=== PATIENT | female | born 1975 | race Caucasian/White ===

== ENCOUNTER 2016-04-26 12:48 | Emergency (ER) ==
--- NOTE | 2016-04-26 14:25 | PROVIDER DOCUMENTATION ---
HPI-General Adult - General Chief Complaint: Edema Stated Complaint: EDEMA Time Seen by Provider: 04/26/16 13:53 Source: patient Allergies/Adverse Reactions: Patient Allergies Allergy/AdvReac Type Severity Reaction Status Date / Time No Known Allergies Allergy Verified 04/26/16 15:07 Home Medications: No Home Medications 07/08/13 - History of Present Illness -Gen Adult Nature of Presenting Problems: 41 y/o WF c/o bilat LE swelling x 3 days. Pt states more swelling on Friday , but laid in bed yesterday and the swelling went down, but states that she wants to know what is wrong. States mild SOB. Denies any other sxs. Review of Systems - Adult - REVIEW OF SYSTEMS - ADULT Constitutional: reports: no symptoms reported. denies: chills, fever Eyes: reports: no symptoms reported. denies: blurred vision, double vision Ears, Nose, Mouth & Throat: reports: no symptoms reported. denies: ear pain, nose pain Cardiovascular: reports: see HPI, edema. denies: chest pain, palpitations Respiratory: reports: see HPI, shortness of breath. denies: dyspnea on exertion Gastrointestinal: reports: no symptoms reported. denies: nausea, vomiting Genitourinary: reports: no symptoms reported. denies: dysuria, frequency Musculoskeletal: reports: no symptoms reported. denies: joint pain Integumentary: reports: no symptoms reported. denies: nail changes, rash Neurological: reports: no symptoms reported. denies: numbness, paresthesia Psychiatric: reports: no symptoms reported Endocrine: reports: no symptoms reported. denies: cold intolerance, heat intolerance Hematologic/Lymphatic: reports: no symptoms reported. denies: easy bruising, prolonged bleeding Allergic/Immunologic: reports: no symptoms reported All Other Systems: Reviewed and Negative Past History - Adult - PAST MEDICAL HISTORY-ADULT Review of Records: reports: Nursing Assessment Review, Medications Reviewed - SOCIAL HISTORY Smoking: cigarettes, greater than 1 pack/day Provider spent 3-5 mins advising pt. on dangers of tobacco.: Discussed manners to quit use, and f/u contacts for add'l counseling. Physical Exam-General - PHYSICAL EXAM-ADULT Initial Vital Signs Reviewed: Yes - CONSTITUTIONAL General Appearance: alert, mild distress - EYES Eyes: pink conjunctivae - HEAD, EARS, NOSE, MOUTH & THROAT HENMT: normocephalic/atraumatic, moist mucous membranes - NECK Neck: supple, normal inspection - RESPIRATORY Respiratory: no respiratory distress, crackles. negative: rales, rhonchi, stridor, wheezing - CARDIOVASCULAR Cardiovascular: regular rate, rhythm. negative: bradycardia, tachycardia - GASTROINTESTINAL (ABDOMEN) Abdominal Exam: normal bowel sounds, non tender, soft - MUSCULOSKELETAL Extremity: normal range of motion, no calf tenderness, pedal edema (bilat LE, pitting edema on L>R, +1) Peripheral Pulses: dorsalis-pedis (R): 1+, dorsalis-pedis (L): 1+ - SKIN Integumentary: normal color, normal turgor, warm/dry. negative: erythema - NEUROLOGIC Neurologic: negative: aphasia - PSYCHIATRIC Psych/Mental Status: normal mood/affect, normal thought content, normal thought process, oriented x 3 Progress - PLAN OF CARE/RESULTS Progress/Plan/Lab Results: Laboratory Tests 04/26/16 04/26/16 04/26/16 14:46 14:46 14:46 WBC 9.88 RBC 3.82 L Hgb 11.5 L Hct 35.1 L MCV 91.9 MCH 30.1 MCHC 32.8 L RDW Std Deviation 17.4 H Plt Count 362 MPV 10.1 Immature Gran % (Auto) 0.0 Neut % (Auto) 53.8 Lymph % (Auto) 34.1 Hood % (Auto) 9.3 Eos % (Auto) 2.5 Baso % (Auto) 0.3 Immature Gran # (Auto) 0.00 Neut # (Auto) 5.31 Lymph # (Auto) 3.37 Hood # (Auto) 0.92 H Eos # (Auto) 0.25 Baso # (Auto) 0.03 Sodium 133 L Potassium 3.3 L Chloride 97 L Carbon Dioxide 28 Anion Gap 8 BUN 6 L Creatinine 0.6 Estimated GFR/1.73 m2 > 60 BUN/Creatinine Ratio 10 Glucose 71 Calculated Osmolality 262 Calcium 8.5 L Magnesium 1.9 Total Bilirubin 0.17 L AST 19 ALT 15 Alkaline Phosphatase 149 H Zts-B-Xxayqnrngra Pept 120 Total Protein 6.0 L Albumin 3.2 L Globulin 2.8 Albumin/Globulin Ratio 1.1 Vitamin B12 Urine Source Urine Color Urine Turbidity Urine pH Ur Specific Lin[place] Urine Protein Ur Glucose (Stick) Ur Ketones (Stick) Urine Blood Urine Nitrite Urine Bilirubin Urobilinogen Dipstick Urine Leukocytes Urine WBC (Auto) Urine RBC (Auto) U Epithel Cells (Auto) Urine Bacteria (Auto) 04/26/16 04/26/16 14:46 14:46 WBC RBC Hgb Hct MCV MCH MCHC RDW Std Deviation Plt Count MPV Immature Gran % (Auto) Neut % (Auto) Lymph % (Auto) Hood % (Auto) Eos % (Auto) Baso % (Auto) Immature Gran # (Auto) Neut # (Auto) Lymph # (Auto) Hood # (Auto) Eos # (Auto) Baso # (Auto) Sodium Potassium Chloride Carbon Dioxide Anion Gap BUN Creatinine Estimated GFR/1.73 m2 BUN/Creatinine Ratio Glucose Calculated Osmolality Calcium Magnesium Total Bilirubin AST ALT Alkaline Phosphatase Trd-L-Erbnoekorha Pept Total Protein Albumin Globulin Albumin/Globulin Ratio Vitamin B12 507 Urine Source CLEAN CATCH Urine Color STRAW Urine Turbidity CLEAR Urine pH 5.5 Ur Specific [place] 1.002 Urine Protein NEGATIVE Ur Glucose (Stick) NEGATIVE Ur Ketones (Stick) NEGATIVE Urine Blood NEGATIVE Urine Nitrite NEGATIVE Urine Bilirubin NEGATIVE Urobilinogen Dipstick NORMAL Urine Leukocytes NEGATIVE Urine WBC (Auto) <10 Urine RBC (Auto) <10 U Epithel Cells (Auto) <10 Urine Bacteria (Auto) NEGATIVE Orders Category Date Time Status Cardiac Monitoring DIRECTED Care 04/26/16 14:18 Active CHEST-2 VIEWS [RAD] Stat Exams 04/26/16 14:18 Draft CBC WITH ELECTRONIC DIFF [HEME] Stat Lab 04/26/16 14:46 Completed COMPREHENSIVE METABOLIC PANEL [CHEM] Stat Lab 04/26/16 14:46 Completed MAGNESIUM [CHEM] Stat Lab 04/26/16 14:46 Completed PRO B-NATRIURETIC PEPTIDE Stat Lab 04/26/16 14:46 Completed URINALYSIS W/POSS RFLX CULT [URINALYSIS] Stat Lab 04/26/16 14:46 Completed VITAMIN B12 Stat Lab 04/26/16 14:46 Completed Vital Signs Temp Pulse Resp BP Pulse Ox 04/26/16 15:08 98 F 64 18 117/74 04/26/16 13:22 98.1 F 69 18 124/61 100 No Known Allergies Allergy (Verified 04/26/16 15:07) No Home Medications 07/08/13 I&O 04/25/16 04/26/16 04/27/16 06:59 06:59 06:59 Output Total 100 Balance -100 Laboratory 04/26/16 04/26/16 04/26/16 14:46 14:46 14:46 WBC RBC Hgb Hct MCV MCH MCHC RDW Std Deviation Plt Count MPV Immature Gran % (Auto) Neut % (Auto) Lymph % (Auto) Hood % (Auto) Eos % (Auto) Baso % (Auto) Immature Gran # (Auto) Neut # (Auto) Lymph # (Auto) Hood # (Auto) Eos # (Auto) Baso # (Auto) Sodium Potassium Chloride Carbon Dioxide Anion Gap BUN Creatinine Estimated GFR/1.73 m2 BUN/Creatinine Ratio Glucose Calculated Osmolality Calcium Magnesium Total Bilirubin AST ALT Alkaline Phosphatase Gga-T-Ebqbtktdklg Pept 120 Total Protein Albumin Globulin Albumin/Globulin Ratio Vitamin B12 507 Urine Source CLEAN CATCH Urine Color STRAW Urine Turbidity CLEAR Urine pH 5.5 Ur Specific [place] 1.002 Urine Protein NEGATIVE Ur Glucose (Stick) NEGATIVE Ur Ketones (Stick) NEGATIVE Urine Blood NEGATIVE Urine Nitrite NEGATIVE Urine Bilirubin NEGATIVE Urobilinogen Dipstick NORMAL Urine Leukocytes NEGATIVE Urine WBC (Auto) <10 Urine RBC (Auto) <10 U Epithel Cells (Auto) <10 Urine Bacteria (Auto) NEGATIVE 04/26/16 04/26/16 14:46 14:46 WBC 9.88 RBC 3.82 L Hgb 11.5 L Hct 35.1 L MCV 91.9 MCH 30.1 MCHC 32.8 L RDW Std Deviation 17.4 H Plt Count 362 MPV 10.1 Immature Gran % (Auto) 0.0 Neut % (Auto) 53.8 Lymph % (Auto) 34.1 Hood % (Auto) 9.3 Eos % (Auto) 2.5 Baso % (Auto) 0.3 Immature Gran # (Auto) 0.00 Neut # (Auto) 5.31 Lymph # (Auto) 3.37 Hood # (Auto) 0.92 H Eos # (Auto) 0.25 Baso # (Auto) 0.03 Sodium 133 L Potassium 3.3 L Chloride 97 L Carbon Dioxide 28 Anion Gap 8 BUN 6 L Creatinine 0.6 Estimated GFR/1.73 m2 > 60 BUN/Creatinine Ratio 10 Glucose 71 Calculated Osmolality 262 Calcium 8.5 L Magnesium 1.9 Total Bilirubin 0.17 L AST 19 ALT 15 Alkaline Phosphatase 149 H Ebk-W-Cfurlvbqrjk Pept Total Protein 6.0 L Albumin 3.2 L Globulin 2.8 Albumin/Globulin Ratio 1.1 Vitamin B12 Urine Source Urine Color Urine Turbidity Urine pH Ur Specific [place] Urine Protein Ur Glucose (Stick) Ur Ketones (Stick) Urine Blood Urine Nitrite Urine Bilirubin Urobilinogen Dipstick Urine Leukocytes Urine WBC (Auto) Urine RBC (Auto) U Epithel Cells (Auto) Urine Bacteria (Auto) Discussed results and f/u with PCP for further evaluation of elevated alkaline phosphatase; discussed conservative management for edema with pt. - XRAY 1 XRAY Study: Chest Impression: See EMR Report (No acute disease, per Dr. Mcgregor) Departure - Departure Time of Disposition Order: 15:56 DIAGNOSIS: Elevated alkaline phosphatase level Edema Qualifiers: Edema type: unspecified Qualified Code(s): R60.9 - Edema, unspecified Disposition: HOME 01 Certified Medical Emergency: Emergent Condition: Stable Additional Instructions: Take tylenol for pain. Elevate legs daily for relief of edema. Follow up with PCP for further management. ED Follow Up Instructions: You have been treated by a care provider in the Emergency Department. These instructions are being provided to you so you can have an understanding of how to care for yourself upon discharge. Upon discharge from the Emergency Department, you are responsible for making arrangements for follow-up care by a physician of your choice. Take all prescribed medications as directed. Return to the Emergency Department immediately for any new or worsening symptoms. You may call the Physician Referral phone number at [phone] to obtain a list of Physicians who are taking new patients. Referrals: Jose Luis Yang MD [Primary Care Provider] - Forms: Return to School/Parent Work Instructions: Edema, [id number] Attestation - Physician/ Mid-level Attestation Patient care was provided by Mid-level provider (TUBE HANDLER/PA):: Yes Mid-level provider:: Adele Santos Mid-level documentation review:: The Mid-level provider documentation, treatment plan and medical decision making was reviewed by the physician who agrees with all treatment and medical decision making by the MLP.
--- NOTE | 2016-04-26 14:57 | Diag Imaging Result Document ---
PROCEDURE NAME: CHEST-2 VIEWS - 04/26/2016 CHEST, TWO VIEWS: INDICATION: Chest pain. COMPARISON: 07/09/2013. FINDINGS: The cardiomediastinal silhouette is within normal limits. The pulmonary vasculature is not congested. No infiltrates or effusions are identified. There are surgical clips at the gastroesophageal junction. IMPRESSION: No acute cardiopulmonary abnormality.
[2016-04-26 14:59] LABS: MANUAL DIFF NEEDED? NO; URINE CULTURE NEEDED? NO; URINE MICRO REVIEW NEEDED? NO; URINE SOURCE CLEAN CATCH
[2016-04-26 15:05] LABS: BASO% 0.3 % (0.0-0.8); EOS# 0.25 X1000 (0.0-0.7); EOS% 2.5 % (0.0-10.0); HEMATOCRIT 35.1 % (37.0-47.0); HEMOGLOBIN 11.5 g/dL (12.0-16.0); LYMPH# 3.37 X1000 (1.2-3.4); LYMPH% 34.1 % (20.5-51.1); MCH 30.1 PG (27-31); MCHC 32.8 g/dL (33-37); MCV 91.9 FL (81-99); MONO# 0.92 X1000 (0.11-0.59); MONO% 9.3 % (1.7-9.3); MPV 10.1 FL (7.4-10.4); NEUT% 53.8 % (42.2-75.2); PLT 362 X1000 (130-400); RBC 3.82 XMIL (4.2-5.4)
[2016-04-26 15:07] LABS: BILIRUBIN URINE NEGATIVE (NEGATIVE); BLOOD URINE NEGATIVE (NEGATIVE); COLOR STRAW; GLUCOSE URINE NEGATIVE (NEGATIVE); LEUKOCYTES URINE NEGATIVE (NEGATIVE); NITRITE URINE NEGATIVE (NEGATIVE); PH URINE 5.5; PROTEIN URINE NEGATIVE (NEGATIVE); SP GRAVITY URINE 1.002; TURBIDITY URINE CLEAR (CLEAR); UROBILINOGEN URINE NORMAL (NORMAL)
[2016-04-26 15:08] LABS: UR EPITHELIAL CELLS <10 /HPF (<10); URINE BACTERIA NEGATIVE /HPF; URINE RBC <10 /HPF (<10); URINE WBC <10 /HPF (<10)
[2016-04-26 15:34] LABS: AGAP 8; ALBUMIN 3.2 g/dL (3.5-5.0); ALKALINE PHOSPHATASE 149 U/L (32-104); BUN 6 mg/dL (8-22); CALCIUM 8.5 mg/dL (8.8-10.2); CHLORIDE 97 mmol/L (98-107); COSMO 262; GOT 19 U/L (10-30); GPT 15 U/L (10-36); MAGNESIUM 1.9 mg/dL (1.5-2.7); POTASSIUM 3.3 mmol/L (3.5-5.1); SODIUM 133 mmol/L (136-145); TCO2 28 mmol/L (25-35); TOTAL BILIRUBIN 0.17 mg/dL (0.20-1.00)
[2016-04-26 16:24] VITALS: BP 124/66
== END 2016-04-26 16:23 | disposition home or self-care (01) ==
LOC: ED 12:48
DX: R60.9 Edema, unspecified (principal); R74.8 Abnormal levels of other serum enzymes; R06.02 Shortness of breath; F17.210 Nicotine dependence, cigarettes, uncomplicated; Z71.6 Tobacco abuse counseling
CPT/HCPCS: 36415; 71020; 80053; 81001; 82607; 83735; 83880; 85025; 99284